=== PATIENT | male | born 1975 | race Hispanic/Latino ===

== ENCOUNTER → 2021-12-25 07:58 | Outpatient (CLI) | payer OTHER, SELFPAY ==
--- NOTE | 2021-12-25 08:01 | DI.ECHO.S_ITS ---
[facility]---------+ [facility] +---------+ : : [address] : : : : [id number] : : : : Phone: [phone]+ Echocardiogram Report + + :Name: SHADIA WHYTE Study Date: 12/25/2021 Height: 71 in : :[facility] ReadingLocation: Weight: 278 lb : : Gender: Male BSA: 2.4 m2 : :: 1975 Age: 46 yrs BP: 118/85 mmHg: :Reason For Study: CAD : :Ordering Physician: ASHLEY, : :ROSELIA Performed By: Chadwick Rubi : :Referring: ROSELIA LIMON : + + Interpretation Summary 1) Normal left ventricular thickness, size, wall motion, and systolic function (EF 60-65%). 2) Normal right ventricular size and function. 3) No significant valvular abnormalities. 4) No prior Echo available for comparison. Procedure: A two-dimensional transthoracic echocardiogram with color flow and Doppler was performed. The study quality was technically adequate. There is no prior echocardiogram noted for this patient. The patient was in normal sinus rhythm during the exam. Left Ventricle: The left ventricle is normal in size and wall thickness. Left ventricular systolic function is normal. The ejection fraction is estimated to be 60-65%. There are no focal wall motion abnormalities. Diastolic parameters suggest probable normal left ventricular diastolic function and normal filling pressures. Right Ventricle: The right ventricle is normal in size and function. Atria: Both atria are normal in size. The interatrial septum grossly appears intact with no obvious evidence for an atrial septal defect. Mitral Valve: The mitral valve is normal in structure and function. There is no mitral regurgitation noted. Aortic Valve: The aortic valve is normal in structure and function. There is no aortic valve stenosis. No aortic regurgitation is present. Tricuspid Valve: The tricuspid valve is normal in structure and function. There is a trace or physiologic amount of tricuspid regurgitation. Pulmonary artery pressures cannot be estimated because of the lack of a measurable TR jet velocity. Pulmonic Valve: The pulmonic valve is normal in structure and function. There is no pulmonic valvular regurgitation. Great Vessels: The aortic root is normal size. The dimensions of the ascending aorta are normal. The IVC is of normal diameter and collapses greater than 50% with a sniff. This suggests a low right atrial pressure of 3 mm Hg. Pericardium/ Pleura There is no pericardial effusion. There is no pleural effusion. MMode/2D Measurements & Calculations LVIDd: 5.3 cm LVOT diam: 2.7 cm LVIDs: 3.9 cm Ao root diam: 3.9 cm FS: 26.4 % asc Aorta Diam: 3.4 cm IVSd: 1.0 cm LVPWd: 1.0 cm LV gomez. diameter/BSA (cm/m^2): 2.2 LV sys. diameter/BSA (cm/m^2): 1.6 LA dimension: 3.7 cm RA long axis: 4.4 cm LA A2 area: 22.7 cm2 LA A4 area: 15.9 cm2 LA length (vol): 6.2 cm LA vol: 49.4 ml LA vol index: 20.4 ml/m2 TAPSE_phl: 2.5 cm Doppler Measurements & Calculations Ao V2 max: 116.0 cm/sec LVOT Max Bang: 87.5 cm/sec Ao V2 mean: 77.2 cm/sec LV V1 max P.1 mmHg Ao max P.0 mmHg LV V1 VTI: 19.3 cm Ao mean P.0 mmHg ETHEL(I,D): 4.9 cm2 Ao V2 VTI: 22.4 cm ETHEL(V,D): 4.3 cm2 sev ratio: 0.86 ETHEL indexed to BSA (cm^2/m^2): 2.0 MV E max bang: 74.1 cm/sec SV(LVOT): 110.5 ml MV A max bang: 57.8 cm/sec MV E/A: 1.3 Med Peak E' Bang: 8.3 cm/sec E/E' med: 8.9 Lat Peak E' Bang: 13.6 cm/sec E/E' lat: 5.4 E/e' average: 7.2 MV dec time: 0.26 sec AV VR_phl: 0.75 MV P1/2t-pr_phl: 77.0 msec ETHEL(VTI)/BSA_phl: 2.0 Reading Physician:12:49 PM
== END ==
PROVIDERS: Referring Provider Internal Medicine Cardiovascular Disease; Visit Provider Internal Medicine Cardiovascular Disease
DX: I25.10 Atherosclerotic heart disease of native coronary artery without angina pectoris (principal)
CPT/HCPCS: 93306

== ENCOUNTER → 2022-02-20 14:16 | Outpatient (CLI) | payer OTHER, SELFPAY ==
--- NOTE | 2022-02-20 | DI.US.S_ITS ---
PROCEDURE: US ABDOMEN COMPLETE INDICATIONS: RIGHT UPPER ABDOMINAL PAIN TECHNIQUE: Real-time scanning was performed of the abdominal and retroperitoneal organs, with image documentation. COMPARISON: None. FINDINGS: Liver: Liver is normal in size and homogeneous in echotexture. Normal flow within the main portal vein is seen. Gallbladder: Surgically absent Biliary ducts: Intrahepatic bile ducts are non-dilated. Extrahepatic bile duct caliber measures 7.2 mm. Normal is 6-7 mm or less in diameter, or 10 mm or less post-cholecystectomy. Pancreas: Visualized portions of the pancreas are sonographically normal. Spleen: Spleen is normal in size and homogeneous in echotexture. Kidneys: Kidneys are normal in size and echotexture. Right kidney measures 11.7 cm long; left kidney measures 12.0 cm long. No hydronephrosis or nephrolithiasis. No solid masses. Aorta: Visualized aorta is normal in caliber at less than 3 cm. Iliacs: Proximal common iliac arteries are normal in caliber at less than 2.5 cm. IVC: Intrahepatic inferior vena cava is patent. Miscellaneous: No free abdominal fluid. IMPRESSION: No acute process. Dictated by: Jayne Leyva M.D. on 02/20/2022 at 16:40 Approved by: Jayne Leyva M.D. on 02/20/2022 at 16:42
== END ==
PROVIDERS: PCP Family Medicine; Referring Provider Family Medicine; Visit Provider Family Medicine
DX: R10.11 Right upper quadrant pain (principal); Z90.49 Acquired absence of other specified parts of digestive tract
CPT/HCPCS: 76700

== ENCOUNTER 2022-02-22 12:22 | Emergency (ER) | payer OTHER, SELFPAY ==
[2022-02-22 12:36] VITALS: BP 106/70; PULSE 78; RESP 15; TEMP 36.1; O2SAT 96; BMI 36.5
[2022-02-22 12:51] LABS: Add Manual Diff / Slide Review NO; Basophils Absolute Auto 0 /uL (0-100); Basophils Percent Auto 0.6 % (0-2); Eosinophils Absolute Auto 100 /uL (0-450); Eosinophils Percent Auto 1.9 % (2-4); Hematocrit 44.9 % (41-53); Hemoglobin 15.1 g/dL (13.5-17.5); Lymphocytes Absolute Auto 2300 /uL (1100-4500); Lymphocytes Percent Auto 38.1 % (25-40); Mean Corpuscular HGB Conc 33.7 % (30-36); Mean Corpuscular Hemoglobin 29.5 PG (26-34); Mean Corpuscular Volume 87.6 fL (80-100); Monocytes Absolute Auto 400 /uL (0-900); Neutrophils Absolute Auto 3200 /uL (1500-7000); Neutrophils Percent Auto 53.4 % (50-75); Platelet Count 212 X10^3/uL (150-400); Red Blood Cell Count 5.12 X10^6/uL (4.5-5.9); Red Cell Distribution Width 14.7 % (11.6-14.8)
[2022-02-22 13:02] LABS: Alanine Aminotransferase 16 IU/L (<50); Albumin 4.4 g/dL (3.5-5.0); Albumin Globulin Ratio 1.4 (1.0-2.8); Alkaline Phosphatase 70 U/L (38-126); Aspartate Aminotransferase 31 IU/L (17-59); BUN Creatinine Ratio 12.8 (6-22); Bilirubin Total 0.6 mg/dL (0.2-1.3); Blood Urea Nitrogen 12 mg/dL (9-20); Calcium 8.7 mg/dL (8.4-10.2); Carbon Dioxide 21 mmol/L (22-32); Chloride 107 mmol/L (98-107); Estimated Glomerular Filt Rate > 60 mL/min (>60); Globulin 3.1 g/dL (1.7-4.1); Glucose 114 mg/dL (70-100); HEMOLYSIS < 15 (0-50); Lipase 111 U/L (23-300); Potassium 3.9 mmol/L (3.4-5.1); Sodium 140 mmol/L (137-145); Total Protein 7.5 g/dL (6.3-8.2)
--- NOTE | 2022-02-22 16:03 | DI.CT.S_ITS ---
PROCEDURE: CT ABDOMEN PELVIS W CON INDICATIONS: Right upper quadrant abdominal pain TECHNIQUE: After the administration of intravenous contrast, axial sections acquired from the lung bases to the pubic symphysis. Coronal and sagittal reformats were performed. For radiation dose reduction, the following was used: automated exposure control, adjustment of mA and/or kV according to patient size. COMPARISON: [facility], , US ABDOMEN COMPLETE, 02/20/2022, 14:29. FINDINGS: Image quality: Excellent. Lung bases: Dependent atelectasis in posterior aspect of bilateral lung wilkinson are seen. Heart: No significant findings. ABDOMEN: Liver: Unremarkable. Gallbladder: Gallbladder is surgically absent. Biliary ducts: Unremarkable. Pancreas: Unremarkable. Spleen: Unremarkable. Adrenal Glands: Unremarkable. Kidneys and Ureters: Unremarkable. Stomach and Bowel: Partially distended stomach shows questionable mid to distal gastric wall thickening. No definite gastric wall mass is seen. No small bowel or colon wall thickening. No mesenteric fat stranding. Descending colon and sigmoid colon diverticulosis is seen. No colonic wall thickening or mesenteric fat stranding. Appendix is visualized in right lower quadrant and is within normal limits. Peritoneum: No abnormal intraperitoneal fluid. No free air. Ventral Wall: There is a small umbilical hernia containing fat only. Abdominal Nodes: No retroperitoneal or mesenteric adenopathy by size criteria. Vessels: Aorta and inferior vena cava are normal in size. PELVIS: Pelvic Organs: Unremarkable. Bladder: Unremarkable. Pelvic Nodes: No enlarged lymph nodes. Miscellaneous: No hernias are seen. Bones: No suspicious bony lesion. No acute vertebral body compression fracture. Degenerative disc disease at L4-5 and L5-S1 levels are seen. IMPRESSION: 1. Finding is concerning for infectious or inflammatory gastritis with mid to distal gastric wall thickening. GI correlation is recommended. 2. No bowel obstruction. No small bowel or colon wall thickening. No free fluid or free air. Colonic diverticulosis without evidence of acute diverticulitis. 3. No renal stones or hydronephrosis. No hydroureter. 4. Degenerative disc disease in lower lumbar spine as above. Dictated by: Jaime Perez M.D. on 02/22/2022 at 16:33 Approved by: Jaime Perez M.D. on 02/22/2022 at 16:36
--- NOTE | 2022-02-22 16:07 | ED_ITS ---
HPI - Abdominal Pain <GALE Butcher - Last Filed: 02/22/22 17:22> General Chief Complaint: Abdominal Pain Stated Complaint: ABD pain Time Seen by Provider: 02/22/22 16:03 Source: patient Mode of arrival: Ambulatory History of Present Illness HPI narrative: This is a 46-year-old male who presents to the emergency department with right upper quadrant pain for the last week associated with nausea and pain. Patient has a history of diabetes type 2, takes metformin and glipizide in a combine medication for this. Has history of cholecystectomy, his primary care provider is Manfred, he sees Dr. Lazcano. Patient denies stool changes, fever or chills. Patient saw his primary care provider and had a abdomen ultrasound completed yesterday which did not show any acute process, no free abdominal fluid, his intrahepatic bile ducts are nondilated, extrahepatic bile duct caliber measures 7.2 mm which is less than 10 mm and normal post cholecystectomy. No hydronephrosis or nephrolithiasis. Patient states that his pain has not improved. Related Data Previous Rx's Medication Instructions Recorded hydrocodone 5 mg-acetaminophen 325 1 tab PO BID PRN pain #10 tabs 02/22/22 mg tablet omeprazole 20 mg tablet,delayed 20 mg PO BID #60 tabs 02/22/22 release sucralfate 1 gram tablet (Carafate) 1 g PO TID PRN stomach pain #60 02/22/22 tabs Allergies Allergy/AdvReac Type Severity Reaction Status Date / Time No Known Drug Allergies Allergy Verified 02/22/22 12:36 Review of Systems <GALE Butcher - Last Filed: 02/22/22 17:22> Review of Systems ROS Unobtainable: All systems reviewed & are unremarkable except as noted in HPI and below Patient History <GALE Butcher - Last Filed: 02/22/22 17:22> Social History Smoking Status: Current every day smoker Smoking Status: Current every day smoker tobacco type: vaping alcohol intake frequency: holidays/special occasions only Substance Use Type: does not use Exam <GALE Butcher Last Filed: 02/22/22 17:22> Narrative Exam Narrative: Reviewed vitals signs and nursing notes. General: cooperative, uncomfortable, in mild distress, rubbing his abd in the right upper quadrant, well groomed afebrile without vomiting HEENT: symmetrical facial expressions, moist mucous membranes Cardiovascular: regular rate and rhythm, no peripheral edema, warm extremities Respiratory: normal effort, able to speak in complete sentences, without wheezing, stridor, or abnormal breath sounds. No retractions or tachypnea. GI: abdomen soft, mildly tender to palpation to the right middle/lower quadrant, no tenderness to the lower abdomen or left upper quadrant, nondistended, without masses, rebound tenderness or exquisite tenderness with exam. MSK: moves all extremities, neurovascularly intact, no weakness, normal tone Skin: brisk capillary refill, without pallor or erythema Neuro: normal speech and cognition, A&O x3, ambulatory, clear speech Psych: mental status is grossly normal, congruent mood, normal affect, pleasant and cooperative Initial Vital Signs Initial Vital Signs: Vital Signs Temperature 97.0 F L 02/22/22 12:36 Pulse Rate 78 02/22/22 12:36 Respiratory Rate 15 02/22/22 12:36 Blood Pressure 106/70 02/22/22 12:36 Pulse Oximetry 96 02/22/22 12:36 Oxygen Delivery Method 02/22/22 12:36 <Tommie Kelly MD - Last Filed: 02/22/22 17:41> Initial Vital Signs Initial Vital Signs: Vital Signs Temperature 97.0 F L 02/22/22 12:36 Pulse Rate 78 02/22/22 12:36 Respiratory Rate 15 02/22/22 12:36 Blood Pressure 106/70 02/22/22 12:36 Pulse Oximetry 96 02/22/22 12:36 Oxygen Delivery Method 02/22/22 12:36 Course <GALE Butcher - Last Filed: 02/22/22 17:22> Orders Ordered: ED Orders 02/22/22 12:45 CRP [C-Reactive Protein Quant] Stat Complete Blood Count AUTO DIFF Stat Comprehensive Metabolic Panel Stat Lactate (Lactic Acid) Stat Lipase Stat Procalcitonin Stat 02/22/22 16:03 CT abdomen pelvis w con Stat 02/22/22 16:18 EKG-12 Lead Stat Discontinued Medications Hydrocodone Bitart/Acetaminophen (Hydrocodone/Acet 5/325 Tablet) 1 tab PO NOW ONE Stop: 02/22/22 17:19 Al Hydrox/Mg Hydrox/Simethicone 20 ml/ Lidocaine HCl 15 ml 0 ml PO NOW ONE Stop: 02/22/22 17:12 Hydromorphone HCl (Hydromorphone 0.5 Mg Inj) 0.5 mg IV NOW ONE Stop: 02/22/22 16:16 Ketorolac Tromethamine (Ketorolac 30 Mg/Ml Vial) 15 mg IV NOW ONE Stop: 02/22/22 16:16 Ondansetron HCl (Ondansetron 4 Mg/2 Ml Inj) 4 mg IV NOW ONE Stop: 02/22/22 16:09 Pantoprazole Sodium (Pantoprazole 40 Mg Vial) 40 mg IV NOW ONE Stop: 02/22/22 17:12 Vital Signs Vital signs: Vital Signs - 8 hr 02/22/22 12:36 02/22/22 17:34 Temperature 97.0 F L 97.8 F Pulse Rate 78 65 Respiratory Rate 15 Blood Pressure 106/70 116/70 Pulse Oximetry 96 97 Oxygen Delivery Method Room Air Room Air <Tommie Kelly MD - Last Filed: 02/22/22 17:41> Orders Ordered: ED Orders 02/22/22 12:45 CRP [C-Reactive Protein Quant] Stat Complete Blood Count AUTO DIFF Stat Comprehensive Metabolic Panel Stat Lactate (Lactic Acid) Stat Lipase Stat Procalcitonin Stat 02/22/22 16:03 CT abdomen pelvis w con Stat 02/22/22 16:18 EKG-12 Lead Stat Discontinued Medications Hydrocodone Bitart/Acetaminophen (Hydrocodone/Acet 5/325 Tablet) 1 tab PO NOW ONE Stop: 02/22/22 17:19 Al Hydrox/Mg Hydrox/Simethicone 20 ml/ Lidocaine HCl 15 ml 0 ml PO NOW ONE Stop: 02/22/22 17:12 Hydromorphone HCl (Hydromorphone 0.5 Mg Inj) 0.5 mg IV NOW ONE Stop: 02/22/22 16:16 Ketorolac Tromethamine (Ketorolac 30 Mg/Ml Vial) 15 mg IV NOW ONE Stop: 02/22/22 16:16 Ondansetron HCl (Ondansetron 4 Mg/2 Ml Inj) 4 mg IV NOW ONE Stop: 02/22/22 16:09 Pantoprazole Sodium (Pantoprazole 40 Mg Vial) 40 mg IV NOW ONE Stop: 12/08/22 17:12 Vital Signs Vital signs: Vital Signs - 8 hr 02/22/22 12:36 02/22/22 17:34 Temperature 97.0 F L 97.8 F Pulse Rate 78 65 Respiratory Rate 15 Blood Pressure 106/70 116/70 Pulse Oximetry 96 97 Oxygen Delivery Method Room Air Room Air MDM - Abdominal Pain <Noemí Rob, [facility] - Last Filed: 02/22/22 17:22> Medical Records Medical records narrative: PROCEDURE:? US ABDOMEN COMPLETE ? INDICATIONS:? RIGHT UPPER ABDOMINAL PAIN ? TECHNIQUE:? Real-time scanning was performed of the abdominal and retroperitoneal organs, with image documentation.? ? COMPARISON:? None. ? FINDINGS:? ? Liver:? Liver is normal in size and homogeneous in echotexture.? Normal flow within the main portal vein is seen. ? Gallbladder:? Surgically absent? ? Biliary ducts:? Intrahepatic bile ducts are non-dilated.? Extrahepatic bile duct caliber measures 7.2 mm.? Normal is 6-7 mm or less in diameter, or 10 mm or less post-cholecystectomy.? ? Pancreas:? Visualized portions of the pancreas are sonographically normal.? ? Spleen:? Spleen is normal in size and homogeneous in echotexture.? ? Kidneys:? Kidneys are normal in size and echotexture.? Right kidney measures 11.7 cm long; left kidney measures 12.0 cm long.? No hydronephrosis or nephrolithiasis.? No solid masses.? ? Aorta:? Visualized aorta is normal in caliber at less than 3 cm.? ? Iliacs:? Proximal common iliac arteries are normal in caliber at less than 2.5 cm.? ? IVC:? Intrahepatic inferior vena cava is patent.? ? Miscellaneous:? No free abdominal fluid.? ? ? IMPRESSION:? No acute process. ? ? Dictated by: Jayne Leyva M.D. on 02/20/2022 at 16:40 ? ? Approved by: Jayne Leyva M.D. on 02/20/2022 at 16:42 ? Lab Data Result diagrams: 02/22/22 12:45 02/22/22 12:45 Labs: Lab Results 02/22/22 12 12 Range/Units 12:45 12:45 12:45 WBC 6.0 (4.5-11.0) X10^3/uL RBC 5.12 (4.5-5.9) X10^6/uL Hgb 15.1 (13.5-17.5) g/dL Hct 44.9 (41-53) % MCV 87.6 (80-100) fL MCH 29.5 (26-34) PG MCHC 33.7 (30-36) % RDW 14.7 (11.6-14.8) % Plt Count 212 (150-400) X10^3/uL Neut % (Auto) 53.4 (50-75) % Lymph % (Auto) 38.1 (25-40) % Jones % (Auto) 6.0 (3-14) % Eos % (Auto) 1.9 L (2-4) % Baso % (Auto) 0.6 (0-2) % Neut # (Auto) 3200 (2312-4103) /uL Lymph # (Auto) 2300 (8181-2618) /uL Jones # (Auto) 400 (0-900) /uL Eos # (Auto) 100 (0-450) /uL Baso # (Auto) 0 (0-100) /uL Sodium 140 (137-145) mmol/L Potassium 3.9 (3.4-5.1) mmol/L Chloride 107 (98-107) mmol/L Carbon Dioxide 21 L (22-32) mmol/L BUN 12 (9-20) mg/dL Creatinine 0.94 (0.66-1.25) mg/dL Estimated GFR > 60 (>60) mL/min BUN/Creatinine Ratio 12.8 (6-22) Glucose 114 H (70-100) mg/dL Lactate (0.7-2.1) mmol/L Calcium 8.7 (8.4-10.2) mg/dL Total Bilirubin 0.6 (0.2-1.3) mg/dL AST 31 (17-59) IU/L ALT 16 (<50) IU/L Alkaline Phosphatase 70 (38-126) U/L C-Reactive Protein 0.7 (<1.0) mg/dL Total Protein 7.5 (6.3-8.2) g/dL Albumin 4.4 (3.5-5.0) g/dL Globulin 3.1 (1.7-4.1) g/dL Albumin/Globulin Ratio 1.4 (1.0-2.8) Lipase 111 (23-300) U/L Procalcitonin (<0.5) ng/mL 02/22/22 02/22/22 Range/Units 12:45 12:45 WBC (4.5-11.0) X10^3/uL RBC (4.5-5.9) X10^6/uL Hgb (13.5-17.5) g/dL Hct (41-53) % MCV (80-100) fL MCH (26-34) PG MCHC (30-36) % RDW (11.6-14.8) % Plt Count (150-400) X10^3/uL Neut % (Auto) (50-75) % Lymph % (Auto) (25-40) % Jones % (Auto) (3-14) % Eos % (Auto) (2-4) % Baso % (Auto) (0-2) % Neut # (Auto) (7922-1021) /uL Lymph # (Auto) (0947-4133) /uL Jones # (Auto) (0-900) /uL Eos # (Auto) (0-450) /uL Baso # (Auto) (0-100) /uL Sodium (137-145) mmol/L Potassium (3.4-5.1) mmol/L Chloride (98-107) mmol/L Carbon Dioxide (22-32) mmol/L BUN (9-20) mg/dL Creatinine (0.66-1.25) mg/dL Estimated GFR (>60) mL/min BUN/Creatinine Ratio (6-22) Glucose (70-100) mg/dL Lactate 1.5 (0.7-2.1) mmol/L Calcium (8.4-10.2) mg/dL Total Bilirubin (0.2-1.3) mg/dL AST (17-59) IU/L ALT (<50) IU/L Alkaline Phosphatase (38-126) U/L C-Reactive Protein (<1.0) mg/dL Total Protein (6.3-8.2) g/dL Albumin (3.5-5.0) g/dL Globulin (1.7-4.1) g/dL Albumin/Globulin Ratio (1.0-2.8) Lipase (23-300) U/L Procalcitonin 0.08 (<0.5) ng/mL Imaging Data CT scan - abdomen/pelvis: Radiologist's Impression: PROCEDURE:? CT ABDOMEN PELVIS W CON ? INDICATIONS:? Right upper quadrant abdominal pain ? TECHNIQUE:? After the administration of intravenous contrast, axial sections acquired from the lung bases to the pubic symphysis.? Coronal and sagittal reformats were performed.? For radiation dose reduction, the following was used:? automated exposure control, adjustment of mA and/or kV according to patient size.? ? COMPARISON:? [facility], , ABDOMEN COMPLETE, 02/20/2022, 14:29. ? FINDINGS:? Image quality:? Excellent.? ? Lung bases:? Dependent atelectasis in posterior aspect of bilateral lung wilkinson are seen. Heart:? No significant findings. ? ABDOMEN: Liver:? Unremarkable.? ? Gallbladder:? Gallbladder is surgically absent. Biliary ducts:? Unremarkable.? ? Pancreas:? Unremarkable.? ? Spleen:? Unremarkable.? ? Adrenal Glands:? Unremarkable.? ? Kidneys and Ureters:? Unremarkable.? ? ? Stomach and Bowel:? Partially distended stomach shows questionable mid to distal gastric wall thickening.? No definite gastric wall mass is seen.? No small bowel or colon wall thickening.? No mesenteric fat stranding.? Descending colon and sigmoid colon diverticulosis is seen.? No colonic wall thickening or mesenteric fat stranding.? Appendix is visualized in right lower quadrant and is within normal limits. Peritoneum:? No abnormal intraperitoneal fluid.? No free air.? ? Ventral Wall: ? There is a small umbilical hernia containing fat only. Abdominal Nodes:? No retroperitoneal or mesenteric adenopathy by size criteria.? Vessels:? Aorta and inferior vena cava are normal in size.? ? PELVIS: Pelvic Organs:? Unremarkable.? ? Bladder:? Unremarkable.? ? Pelvic Nodes: No enlarged lymph nodes.? Miscellaneous: No hernias are seen. ? ? ? Bones:? No suspicious bony lesion.? No acute vertebral body compression fracture.? Degenerative disc disease at L4-5 and L5-S1 levels are seen. ? ? IMPRESSION:? ? 1.? Finding is concerning for infectious or inflammatory gastritis with mid to distal gastric wall thickening.? GI correlation is recommended. ? 2. No bowel obstruction.? No small bowel or colon wall thickening.? No free fluid or free air.? Colonic diverticulosis without evidence of acute diverticulitis. ? 3. No renal stones or hydronephrosis.? No hydroureter. ? 4. Degenerative disc disease in lower lumbar spine as above.? ? ? Dictated by: aJime Perez M.D. on 02/22/2022 at 16:33 ? ? Approved by: Jaime Perez M.D. on 02/22/2022 at 16:36 ? MDM Narrative Medical decision making narrative: This is a 46-year-old male presents to the emergency department with upper abdominal pain after being evaluated by his PCP and having an abdomen ultrasound yesterday to the right upper quadrant without evidence of acute abnormality. He has history of cholecystectomy, has had 1 week of upper abdominal pain which is constant in nature. Abdomen pelvis CT is significant for infectious/inflammatory gastritis with mid to distal gastric wall thickening, no bowel obstruction or colon wall thickening, no free fluid or air, without evidence of diverticulitis, colonic diverticulosis is present. No renal stones or hydronephrosis, DDD in lower lumbar spine. Patient's lab work overall is unremarkable. No elevation to procalcitonin, lipase, liver enzymes, CRP, leukocytosis or other. Recommend patient follow-up with his PCP, was prescribed omeprazole 20 mg for b.i.d. dosing , Carafate, and pain medication to use as needed. Recommend follow-up with upper endoscopy if his symptoms do not improve, contact information for [facility] was provided. No peritoneal signs on abdominal exam. Patient remains p.o. tolerant. Serial abdominal exam without increase in abdominal pain. Given history and exam, low suspicion for acute abdominal process, such as acute pancreatitis, perforated viscus, atypical appendicitis, colitis, diverticulitis or torsion. Extensive conversation about ER return precautions and need for close follow-up. Patient is appropriate and amenable to discharge home. Vital signs are stable on repeat examination is unremarkable. Patient has been informed of results. Patient has been given strict return to ER precautions for any new or worsening symptoms. Patient understands to follow up closely with outpatient providers as instructed. Patient understands plan and agrees to discharge home. All questions and concerns answered at this time. <Tommie Kelly MD - Last Filed: 02/22/22 17:41> Lab Data Labs: Lab Results 02/22/22 02/22/22 02/22/22 Range/Units 12:45 12:45 12:45 WBC 6.0 (4.5-11.0) X10^3/uL RBC 5.12 (4.5-5.9) X10^6/uL Hgb 15.1 (13.5-17.5) g/dL Hct 44.9 (41-53) % MCV 87.6 (80-100) fL MCH 29.5 (26-34) PG MCHC 33.7 (30-36) % RDW 14.7 (11.6-14.8) % Plt Count 212 (150-400) X10^3/uL Neut % (Auto) 53.4 (50-75) % Lymph % (Auto) 38.1 (25-40) % Jones % (Auto) 6.0 (3-14) % Eos % (Auto) 1.9 L (2-4) % Baso % (Auto) 0.6 (0-2) % Neut # (Auto) 3200 (8122-6551) /uL Lymph # (Auto) 2300 (0452-0604) /uL Jones # (Auto) 400 (0-900) /uL Eos # (Auto) 100 (0-450) /uL Baso # (Auto) 0 (0-100) /uL Sodium 140 (137-145) mmol/L Potassium 3.9 (3.4-5.1) mmol/L Chloride 107 (98-107) mmol/L Carbon Dioxide 21 L (22-32) mmol/L BUN 12 (9-20) mg/dL Creatinine 0.94 (0.66-1.25) mg/dL Estimated GFR > 60 (>60) mL/min BUN/Creatinine Ratio 12.8 (6-22) Glucose 114 H (70-100) mg/dL Lactate (0.7-2.1) mmol/L Calcium 8.7 (8.4-10.2) mg/dL Total Bilirubin 0.6 (0.2-1.3) mg/dL AST 31 (17-59) IU/L ALT 16 (<50) IU/L Alkaline Phosphatase 70 (38-126) U/L C-Reactive Protein 0.7 (<1.0) mg/dL Total Protein 7.5 (6.3-8.2) g/dL Albumin 4.4 (3.5-5.0) g/dL Globulin 3.1 (1.7-4.1) g/dL Albumin/Globulin Ratio 1.4 (1.0-2.8) Lipase 111 (23-300) U/L Procalcitonin (<0.5) ng/mL 02/22/22 02/22/22 Range/Units 12:45 12:45 WBC (4.5-11.0) X10^3/uL RBC (4.5-5.9) X10^6/uL Hgb (13.5-17.5) g/dL Hct (41-53) % MCV (80-100) fL MCH (26-34) PG MCHC (30-36) % RDW (11.6-14.8) % Plt Count (150-400) X10^3/uL Neut % (Auto) (50-75) % Lymph % (Auto) (25-40) % Jones % (Auto) (3-14) % Eos % (Auto) (2-4) % Baso % (Auto) (0-2) % Neut # (Auto) (3401-0806) /uL Lymph # (Auto) (9815-5691) /uL Jones # (Auto) (0-900) /uL Eos # (Auto) (0-450) /uL Baso # (Auto) (0-100) /uL Sodium (137-145) mmol/L Potassium (3.4-5.1) mmol/L Chloride (98-107) mmol/L Carbon Dioxide (22-32) mmol/L BUN (9-20) mg/dL Creatinine (0.66-1.25) mg/dL Estimated GFR (>60) mL/min BUN/Creatinine Ratio (6-22) Glucose (70-100) mg/dL Lactate 1.5 (0.7-2.1) mmol/L Calcium (8.4-10.2) mg/dL Total Bilirubin (0.2-1.3) mg/dL AST (17-59) IU/L ALT (<50) IU/L Alkaline Phosphatase (38-126) U/L C-Reactive Protein (<1.0) mg/dL Total Protein (6.3-8.2) g/dL Albumin (3.5-5.0) g/dL Globulin (1.7-4.1) g/dL Albumin/Globulin Ratio (1.0-2.8) Lipase (23-300) U/L Procalcitonin 0.08 (<0.5) ng/mL Discharge Plan Departure Patient Disposition: Home Clinical Impression: History of cholecystectomy Gastritis Qualifiers: Gastritis type: unspecified gastritis Chronicity: acute Gastritis bleeding: without bleeding Qualified Code(s): K29.00 - Acute gastritis without bleeding Abdominal pain Qualifiers: Abdominal location: right upper quadrant Qualified Code(s): R10.11 - Right upper quadrant pain Instructions: Gastritis, DI for Epigastric Pain Activity Restrictions/Additional Instructions: *You have been diagnosed with gastritis which is inflammation of the stomach with inflammation around the stomach. Please use Carafate throughout the day to help coat your stomach and treat pain, use omeprazole each morning to prevent worsening. Please follow-up with your primary care provider if you need a referral to GI for upper endoscopy to evaluate for ulcer or other abnormality. There was no concerning findings with your appendix or colon, no kidney stones or other bowel problems found on your CT. Please stay hydrated, try to avoid taking ibuprofen, heavy caffeine use, and follow-up bland diet to allow your stomach time to heal. Thank you for your patients today, allowed this is not dangerous and should start to get better after a few days. *What to do: *Please continue to take your regular medications as directed. [x ] New medication prescriptions sent to your pharmacy: [ [facility]] [ ] New medication written as a paper prescription [ ] No new medications given *Please follow up with your primary care provider in 2-3 days, call for an appointment. Let them know you were seen in the Emergency Department and that we asked that you be seen for follow-up. We will electronically transmit a record of today's note if your PCP is in our system *If you do not have a primary care provider please contact [phone] to establish care with one of the [facility] primary care providers. *Return to Emergency Department if you should have any new, worsening, or concerning symptoms, such as [fever greater than 101F, chills, worsening pain, persistent vomiting or other bothersome symptoms]. Prescriptions: New sucralfate [Carafate] 1 gram tablet 1 g PO TID PRN (Reason: stomach pain) Qty: 60 0RF omeprazole 20 mg tablet,delayed release (DR/EC) 20 mg PO BID Qty: 60 2RF hydrocodone-acetaminophen 5-325 mg tablet 1 tab PO BID PRN (Reason: pain) Qty: 10 0RF Referrals: [facility] [Provider Group] (May call and schedule upper endoscopy, have your PCP send referral over, they will evaluate for H pylori and ulcer) Gi García MD [Primary Care Provider] - Donte Adams MD [Non-Staff] - <Tommie Kelly MD - Last Filed: 02/22/22 17:41> Cosign ED Attending Cosignature Attestation: I was immediately available in the department for consultation. ?This documentation has been reviewed and I agree with assessment and plan. Supervised by Tommie Kelly MD
[2022-02-22 16:23] LABS: Lactate (Lactic Acid) 1.5 mmol/L (0.7-2.1)
[2022-02-22 16:26] LABS: C-Reactive Protein Quant 0.7 mg/dL (<1.0)
[2022-02-22 16:41] LABS: Procalcitonin 0.08 ng/mL (<0.5)
[2022-02-22] MEDS: ONDANSETRON 4 MG/2 ML INJ IV (17:30)
[2022-02-22 17:34] VITALS: BP 116/70; PULSE 65; TEMP 36.6; O2SAT 97
[2022-02-22] MEDS: KETOROLAC 30 MG/ML VIAL 15 MG IV (17:34)
[2022-02-22] MEDS: PANTOPRAZOLE 40 MG VIAL IV (17:36)
[2022-02-22] MEDS: MAG HYDROX/ALUMINUM/SIMETH SUS 20 ML, LIDOCAINE VISCOUS 2% 15 ML PO (17:39)
== END 2022-02-22 17:49 | disposition home or self-care (01) ==
PROVIDERS: Emergency Medicine; Emergency Provider Nurse Practitioner Critical Care Medicine; PCP Family Medicine
DX: K29.00 Acute gastritis without bleeding (principal)
CPT/HCPCS: 36415; 74177; 80053; 83605; 83690; 84145; 85025; 86140; 96374; 96375; 99284; C9113; J1885; J2405; Q9967

== ENCOUNTER → 2024-01-16 08:04 | Outpatient (CLI) | payer OTHER, SELFPAY ==
--- NOTE | 2024-01-16 08:05 | DI.US.S_ITS ---
PROCEDURE: US ABDOMEN LIMITED INDICATIONS: RUQ PAIN / EPIGASTRIC PAIN TECHNIQUE: Real-time scanning was performed of the abdominal and retroperitoneal organs, with image documentation. COMPARISON: [facility], US, US ABDOMEN COMPLETE, 02/20/2022, 14:29. FINDINGS: Liver: Liver is normal in size and show increased liver parenchymal echotexture. No discrete hepatic lesion. Gallbladder: Gallbladder is surgically absent. Biliary ducts: Intrahepatic bile ducts are non-dilated. Extrahepatic bile duct caliber measures 7 mm. Normal is 6-7 mm or less in diameter, or 10 mm or less post-cholecystectomy. Pancreas: Visualized portions of the pancreas are sonographically normal. Miscellaneous: No free abdominal fluid. IMPRESSION: 1. Mild hepatic steatosis. No discrete hepatic lesion. 2. Prior cholecystectomy. No biliary ductal dilatation. Dictated by: Jaime Perez M.D. on 01/16/2024 at 11:54 Approved by: Jaime Perez M.D. on 01/16/2024 at 11:55
== END ==
PROVIDERS: PCP Family Medicine; Referring Provider Nurse Practitioner Family; Visit Provider Nurse Practitioner Family
DX: K76.0 Fatty (change of) liver, not elsewhere classified (principal); R10.11 Right upper quadrant pain; R10.13 Epigastric pain; Z90.49 Acquired absence of other specified parts of digestive tract
CPT/HCPCS: 76705

== ENCOUNTER → 2024-03-07 09:32 | Outpatient (CLI) | payer OTHER, SELFPAY ==
[2024-03-07 09:59] LABS: Estimated Glomerular Filt Rate > 60 mL/min (>60)
--- NOTE | 2024-03-07 10:05 | DI.CT.S_ITS ---
PROCEDURE: CT ABDOMEN PELVIS W CON INDICATIONS: EPIGASTRIC ABD PAIN,RUQ ABD PAIN TECHNIQUE: After the administration of intravenous contrast, axial sections acquired from the lung bases to the pubic symphysis. Coronal and sagittal reformats were performed. For radiation dose reduction, the following was used: automated exposure control, adjustment of mA and/or kV according to patient size. COMPARISON: [facility], CT, CT ABDOMEN PELVIS W CON, 02/22/2022, 16:08. FINDINGS: Image quality: Diagnostic. Peritoneum: No pneumoperitoneum or ascites. Bones: No acute osseous abnormality. Re-identified endplate sclerosis, disc height loss, and vacuum disc phenomenon at the L5-S1 level (/78). Lower Chest: No acute abnormality. Liver: Normal in size and contour. Hepatic hypoattenuation. Gallbladder: Status post cholecystectomy. Biliary tree: No intrahepatic or extrahepatic biliary ductal dilatation. Pancreas: Within normal limits. Spleen: Normal in size and contour. Kidneys: No hydronephrosis or obstructive urolithiasis. Adrenals: No adrenal nodularity. Bladder: Normal in size and wall thickness. : No acute abnormality. Stomach: Normal in size and contour. Bowel: Normal in diameter without any bowel obstruction. Appendix within normal limits (4/55). Moderate sigmoid and descending colonic diverticulosis. Oral contrast opacifies the stomach, duodenum, and proximal/mid jejunum. Lymph Nodes: No retroperitoneal, mesenteric, or inguinal lymphadenopathy. Vascular: No abdominal aortic aneurysm. The visualized arterial vasculature is patent. Soft Tissues: No acute abnormality. IMPRESSION: Hepatic steatosis. Otherwise, no acute CT abnormality of the abdomen/pelvis. Dictated by: Anjum Tovar M.D. on 03/08/2024 at 12:21 Approved by: Anjum Tovar M.D. on 03/08/2024 at 12:28
== END ==
LOC: CT 09:33
PROVIDERS: Radiology Diagnostic Radiology; PCP Family Medicine; Referring Provider Nurse Practitioner Family; Visit Provider Nurse Practitioner Family
DX: K76.0 Fatty (change of) liver, not elsewhere classified (principal); K57.30 Diverticulosis of large intestine without perforation or abscess without bleeding; R10.13 Epigastric pain; R10.11 Right upper quadrant pain; Z90.49 Acquired absence of other specified parts of digestive tract
CPT/HCPCS: 36415; 74177; 82565; Q9967